=== PATIENT | female | born 1995 | race Caucasian/White ===

== ENCOUNTER 2024-03-27 01:50 | Emergency (ER) | payer SELFPAY ==
[~2024-03-27] VITALS: Ht 160 cm; Wt 61.2 kg
[~2024-03-27 01:50] MED LIST: ONDANSETRON ODT4 MG PO
[2024-03-27] MEDS ORDERED: ONDANSETRON HCL INJ 2MG/ML 2ML 2 MG/ML VIAL ONE (02:13)
[2024-03-27] MEDS: FAMOTIDINE 20 MG/2 ML VIAL IV STA (02:14)
[2024-03-27] MEDS: ONDANSETRON HCL INJ 2MG/ML 2ML 2 MG/ML VIAL IV STA (02:14)
[2024-03-27] MEDS: SODIUM CHLORIDE 0.9% 1000ML 1,000 ML IV STA (02:14)
[2024-03-27 02:28] LABS: BASOPHILS # (AUTO) 0.1 (0.0-0.1); BASOPHILS % 0.6 % (0.0-1.0); EOSINOPHILS # (AUTO) 0.2 (0.0-0.4); EOSINOPHILS % 2.1 % (0.0-6.0); HEMATOCRIT 33.7 % (34.2-44.1); HEMOGLOBIN 10.9 g/dL (12.0-16.0); LYMPHOCYTES # (AUTO) 1.4 (1.0-3.2); LYMPHOCYTES % 15.6 % (18.0-39.1); MEAN CORPUSCULAR HEMOGLOBIN 28.8 pg (28-32); MEAN CORPUSCULAR HGB CONC 32.3 g/dL (31-35); MEAN CORPUSCULAR VOLUME 88.9 fL (81-99); MONOCYTES # (AUTO) 0.6 (0.2-0.8); MONOCYTES % 6.1 % (4.4-11.3); NEUTROPHILS # (AUTO) 6.8 (2.1-6.9); NEUTROPHILS % 75.3 % (38.7-80.0); PLATELET COUNT 251 x10e3/uL (140-360); RED BLOOD COUNT 3.79 x10e6/uL (3.6-5.1)
[2024-03-27 02:33] LABS: AMPHETAMINES SCREEN,URINE NEGATIVE (NEGATIVE); BENZODIAZEPINES SCREEN,URINE NEGATIVE (NEGATIVE); CANNABINOIDS SCREEN,URINE NEGATIVE (NEGATIVE); METHADONE SCREEN, URINE NEGATIVE (NEGATIVE); OPIATES SCREEN,URINE NEGATIVE (NEGATIVE); PHENCYCLIDINE SCREEN,URINE NEGATIVE (NEGATIVE)
[2024-03-27 02:44] LABS: ALANINE AMINOTRANSFERASE 10 IU/L (0-55); ALBUMIN 4.1 g/dL (3.5-5.0); ALBUMIN/GLOBULIN RATIO 1.2 (0.8-2.0); ALKALINE PHOSPHATASE 70 IU/L (40-150); ANION GAP 14.3 mmol/L (8-16); BILIRUBIN,TOTAL 0.3 mg/dL (0.2-1.2); BLOOD UREA NITROGEN 9 mg/dL (7-26); BUN/CREATININE RATIO 12 (6-25); CALCIUM 9.2 mg/dL (8.4-10.2); CARBON DIOXIDE 21 mmol/L (22-29); CHLORIDE 107 mmol/L (98-107); CREATINE KINASE 58 IU/L (29-168); CREATININE, SERUM 0.78 mg/dL (0.57-1.11); EST GLOMERULAR FILTRATION RATE 107 ML/MIN (>=60); GLUCOSE 106 mg/dL (74-118); SODIUM 139 mmol/L (136-145); TOTAL PROTEIN 7.5 g/dL (6.5-8.1)
[2024-03-27 02:47] LABS: POTASSIUM 3.3 mmol/L (3.5-5.1)
[2024-03-27 02:53] LABS: TROPONIN I < 0.001 ng/mL (0-0.300)
[2024-03-27 03:20] VITALS: PULSE 90; RESP 17; TEMP 98.3; O2SAT 98
== END 2024-03-27 03:25 | disposition home or self-care (01) ==
LOC: ER 01:55
DX: R06.02 Shortness of breath (principal); R07.89 Other chest pain; R11.2 Nausea with vomiting, unspecified
CPT/HCPCS: 36415; 71045; 80053; 80307; 82550; 83690; 83880; 84484; 85025; 93005; 99284; J2405; J7030

== ENCOUNTER 2024-07-12 19:44 | Emergency (ER) | payer SELFPAY ==
[~2024-07-12] VITALS: Ht 160 cm; Wt 63.5 kg
[2024-07-12 20:00] VITALS: PULSE 76; RESP 17; TEMP 98.4
[2024-07-12 21:01] LABS: BASOPHILS % 0.5 % (0.0-1.0); EOSINOPHILS # (AUTO) 0.1 (0.0-0.4); EOSINOPHILS % 1.6 % (0.0-6.0); HEMATOCRIT 32.3 % (34.2-44.1); LYMPHOCYTES # (AUTO) 2.1 (1.0-3.2); LYMPHOCYTES % 24.4 % (18.0-39.1); MEAN CORPUSCULAR HEMOGLOBIN 28.3 pg (28-32); MEAN CORPUSCULAR VOLUME 91.5 fL (81-99); MONOCYTES # (AUTO) 0.7 (0.2-0.8); MONOCYTES % 8.6 % (4.4-11.3); NEUTROPHILS # (AUTO) 5.6 (2.1-6.9); NEUTROPHILS % 64.6 % (38.7-80.0); PLATELET COUNT 223 x10e3/uL (140-360); RED BLOOD COUNT 3.53 x10e6/uL (3.6-5.1); RED CELL DISTRIBUTION WIDTH 15.1 % (11.7-14.4); WHITE BLOOD COUNT 8.61 x10e3/uL (4.8-10.8)
[2024-07-12 21:21] LABS: ANION GAP 15.7 mmol/L (8-16); CREATININE, SERUM 0.59 mg/dL (0.57-1.11); POTASSIUM 3.7 mmol/L (3.5-5.1)
[2024-07-13 00:23] VITALS: BP 113/74; PULSE 85; RESP 16; O2SAT 100
== END 2024-07-13 00:23 | disposition home or self-care (01) ==
LOC: ER 20:05
DX: O20.0 Threatened abortion (principal)
CPT/HCPCS: 36415; 76801; 80048; 84702; 85025; 99284